=== PATIENT | male | born 2000 | race Caucasian/White ===

== ENCOUNTER 2023-02-27 21:53 | Emergency (ER) | payer SELFPAY ==
[~2023-02-27] VITALS: Ht 170.2 cm; Wt 54.4 kg
--- NOTE | 2023-02-27 22:00 | NUR ---
Pt is noted AOX3, responsive as he is brought in EMS , from a Friend car due to C/O Drug overdoseon Fentanyl , Pt was given 1mg off Narcan Intranasally by EMS on field . Pt care continue as awaits MD orders.
--- NOTE | 2023-02-28 00:20 | NUR ---
Pt noted sleeping with no S/S off distress or C/O pain. Pt care continue as he is been monitor closely.
--- NOTE | 2023-02-28 02:15 | NUR ---
Pt care continue as he sleeping and stable.
--- NOTE | 2023-02-28 04:34 | NUR ---
Pt remain stable with no S/S off distress or C/O Pain. Pt care continue as he been monitor closely and assist as needed.
--- NOTE | 2023-02-28 06:04 | NUR ---
Pt is noted alert, responsive and stable as he is been discharged to home with all discharged instructions given
[2023-02-28 06:06] VITALS: BP 110/65; TEMP 97.9; O2SAT 98
== END 2023-02-28 06:06 | disposition home or self-care (01) ==
LOC: ER 21:55
DX: T40.411A Poisoning by fentanyl or fentanyl analogs, accidental (unintentional), initial encounter (principal); F17.210 Nicotine dependence, cigarettes, uncomplicated; Z59.00 Homelessness unspecified; Y92.89 Other specified places as the place of occurrence of the external cause
CPT/HCPCS: A4663